=== PATIENT | female | born 1995 | race Hispanic/Latino ===

== ENCOUNTER 2021-03-11 22:00 | Emergency (ER) | payer SELFPAY ==
[2021-03-11] MEDS ORDERED: MORPHINE 4 MG/ML SYR ONE (22:21)
[2021-03-12] MEDS ORDERED: HYDROCODONE/APAP 5/325 MG TAB ONE (01:35)
--- NOTE | 2021-03-12 02:35 | ER ---
Nurse's Notes [facility] Name: Joselin Horvath Age: 26 yrs Sex: Female : 1995 Arrival Date: 03/11/2021 Time: 22:03 Bed 14 Private MD: Diagnosis: Fracture, Left Ankle, Dislocated, Displaced, Trimalleolar Presentation: 03/11 22:09 Chief complaint: Patient states: got left foot stuck between headboard and bed, twisted ld1 it and it is hurting really bad. Coronavirus screen: At this time, the client does not indicate any symptoms associated with coronavirus-19. Ebola Screen: No symptoms or risks identified at this time. Initial Sepsis Screen: Does the patient meet any 2 criteria? No. Patient's initial sepsis screen is negative. Does the patient have a suspected source of infection? No. Patient's initial sepsis screen is negative. Risk Assessment: Do you want to hurt yourself or someone else? Patient reports no desire to harm self or others. Onset of symptoms was March 11, 2021. 22:09 Method Of Arrival: Wheelchair ld1 22:09 Acuity: MELINA 3 ld1 Triage Assessment: 22:10 General: Appears in no apparent distress. uncomfortable, Behavior is cooperative, ld1 appropriate for age, anxious, crying. Pain: Complains of pain in left medial ankle and anterior aspect of left ankle Pain does not radiate. Pain currently is 10 out of 10 on a pain scale. Quality of pain is described as throbbing, Pain began 1 hour ago. Is continuous. Neuro: Level of Consciousness is awake, alert, obeys commands, Oriented to person, place, time, situation, Appropriate for age. Cardiovascular: Capillary refill < 3 seconds Patient's skin is warm and dry. Respiratory: Airway is patent Respiratory effort is even, unlabored, Respiratory pattern is regular, symmetrical. Musculoskeletal: Reports pain in anterior aspect of left ankle. Historical: - Allergies: 22:10 No Known Allergies; ld1 - Home Meds: 22:10 None [Active]; ld1 - PMHx: 22:10 None; ld1 - PSHx: 22:10 None; ld1 - Immunization history:: Adult Immunizations up to date, Client reports having NOT received the Covid vaccine. - Social history:: Smoking status: Patient denies any tobacco usage or history of. Patient/guardian denies using alcohol. Screenin:15 Abuse screen: Denies threats or abuse. Denies injuries from another. Nutritional dc2 screening: No deficits noted. Tuberculosis screening: No symptoms or risk factors identified. Never had TB. Fall Risk None identified. No fall in past 12 months (0 pts). No secondary diagnosis (0 pts). No IV (0 pts). Ambulatory Aid- None/Bed Rest/Nurse Assist (0 pts). Gait- Normal/Bed Rest/Wheelchair (0 pts) Mental Status- Oriented to own ability (0 pts). Total [place] Fall Scale indicates No Risk (0-24 pts). Assessment: 22:15 General: Appears uncomfortable, slender, well groomed, well developed, Behavior is dc2 cooperative, anxious, crying. Pain: Complains of pain in Left ankle. Neuro: No deficits noted. Level of Consciousness is awake, alert, obeys commands, Oriented to person, place, time, situation. Cardiovascular: Denies chest pain, shortness of breath, Heart tones present. Respiratory: No deficits noted. Airway is patent Breath sounds are clear bilaterally. GI: Bowel sounds present X 4 quads. : No signs and/or symptoms were reported regarding the genitourinary system. Derm: No deficits noted. No signs and/or symptoms reported regarding the dermatologic system. Musculoskeletal: Capillary refill < 3 seconds, Swelling present in left ankle with positive pulses brisk cap refill. 03/12 03:32 Reassessment: pt refused to go to [place] due to cost of ambulance transportation, Dr. sandra Barraza aware, will go AMA. Vital Signs: 03/11 22:09 BP 141 / 78; Pulse 79; Resp 18; Temp 97.9(TE); Pulse Ox 100% on R/A; Weight 65.77 kg; ld1 Height 5 ft. 4 in. (162.56 cm); Pain 10/10; 23:00 BP 112 / 66; Pulse 75; Resp 18; Pulse Ox 100% ; Pain 4/10; dc2 03/12 00:00 BP 111 / 84; Pulse 72; Resp 18; Pulse Ox 100% ; Pain 6/10; dc2 01:00 BP 101 / 58; Pulse 67; Resp 20; Pulse Ox 100% ; Pain 8/10; dc2 03:00 BP 99 / 64; Pulse 64; Resp 16; Temp 98.0; Pain 3/10; dc2 11 22:09 Body Mass Index 24.89 (65.77 kg, 162.56 cm) ld1 ED Course: 03/11 22:03 Patient arrived in ED. cf2 22:09 Kianna Mendez, RN is Primary Nurse. dc2 22:10 Triage completed. ld1 22:10 Arm band placed on left wrist. ld1 22:11 José Miguel Barraza MD is Attending Physician. mh7 22:15 Patient has correct armband on for positive identification. Bed in low position. Call dc2 light in reach. Side rails up X 1. Adult w/ patient. patient monitor on. Pulse ox on. NIBP on. Door closed. Lights dimmed. 22:39 X-ray(s) taken. dc2 22:57 Ankle Left 2 View In Process Unspecified. EDMS 22:57 Foot Left 2 View In Process Unspecified. EDMS 23:46 ED physician to see patient. construction services technician and Charge nurse Fidel at bedside for placement of dc2 splint to left ankle. 03/12 00:13 Ankle Left 3 View XRAY In Process Unspecified. EDMS 00:42 Orthoglass splint: Posterior short lleg splint applied on left leg. stirrup splint oe applied on left leg. 01:26 ED physician to see patient. dc2 02:17 initiated a transfer with Marti from [facility]. mw2 02:27 administrative approval given by Marti Devi/ patient has been accepted to [address] to the ER/ Dr. Phillips accepted the patient in transfer/ report to be called to [phone]. 02:30 IV Flushed Converted IV to saline lock on right antecubital area. dc2 02:30 No provider procedures requiring assistance completed. dc2 Administered Medications: 03/11 22:26 Drug: morphine 4 mg Route: IM; Site: left deltoid; dc2 23:03 Follow up: Response: Pain is decreased dc2 23:15 Follow up: Response: Pain is decreased dc2 03/12 01:38 Drug: [place] (HYDROcodone-acetaminophen) 5 mg-325 mg 1 tabs Route: PO; dc2 02:30 Follow up: Response: Pain is decreased dc2 Outcome: 02:35 ER care complete, transfer ordered by MD. ascencio 03:31 AMA AMA form signed dc2 03:31 Condition: stable 03:51 Patient left the ED. dc2 Signatures: Dispatcher [employer] Fidel Pulido, RN RN em Misael Katz MyKena mw2 Jennie Thornton 2 José Miguel Barraza MD MD 7 Kylah Mejia RN RN ld1 Kianna Mendez RN RN dc2
--- NOTE | 2021-03-12 02:36 | EDPHYS ---
Physician Documentation [facility] Name: Joselin Horvath Age: 26 yrs Sex: Female : 1995 Arrival Date: 03/11/2021 Time: 22:03 Bed 14 Private MD: LIZZ Physician José Miguel Barraza HPI: 03/11 22:20 This 26 yrs old Female presents to ER via Wheelchair with complaints of Ankle mh7 Injury, Ankle Swelling. 22:20 The patient presents with an injury, pain, that is acute, swelling. The complaints mh7 affect the left ankle. Onset: The symptoms/episode began/occurred just prior to arrival, today. Context: The problem was sustained at home, resulted from Foot got stuck between bed and headboard, The mechanism of injury involved inversion of the affected ankle. The mechanism of injury involved eversion of the affected ankle. The patient can partially bear weight on the affected extremity. must have assistance, from family. Associated signs and symptoms: Pertinent negatives: calf tenderness, fever, nausea, numbness, rash, tingling, vomiting, warmth, weakness. Modifying factors: The symptoms are alleviated by nothing, Did not take pain medication the symptoms are aggravated by weight bearing, movement. Severity of symptoms: At their worst the symptoms were moderate, earlier today, in the emergency department the symptoms are unchanged. Historical: - Allergies: 22:10 No Known Allergies; ld1 - Home Meds: 22:10 None [Active]; ld1 - PMHx: 22:10 None; ld1 - PSHx: 22:10 None; ld1 - Immunization history:: Adult Immunizations up to date, Client reports having NOT received the Covid vaccine. - Social history:: Smoking status: Patient denies any tobacco usage or history of. Patient/guardian denies using alcohol. ROS: 22:20 Constitutional: Negative for fever, chills, and weight loss, Eyes: Negative for injury, mh7 pain, redness, and discharge, ENT: Negative for injury, pain, and discharge, Neck: Negative for injury, pain, and swelling, Cardiovascular: Negative for chest pain, palpitations, and edema, Respiratory: Negative for shortness of breath, cough, wheezing, and pleuritic chest pain, Abdomen/GI: Negative for abdominal pain, nausea, vomiting, diarrhea, and constipation, Back: Negative for injury and pain, : Negative for injury, bleeding, discharge, and swelling, Skin: Negative for injury, rash, and discoloration, Neuro: Negative for headache, weakness, numbness, tingling, and seizure, Psych: Negative for depression, anxiety, suicide ideation, homicidal ideation, and hallucinations, Allergy/Immunology: Negative for hives, rash, and allergies, Endocrine: Negative for neck swelling, polydipsia, polyuria, polyphagia, and marked weight changes, Hematologic/Lymphatic: Negative for swollen nodes, abnormal bleeding, and unusual bruising. Exam: 22:20 Head/Face: Normocephalic, atraumatic. Skin: Warm, dry with normal turgor. Normal mh7 color with no rashes, no lesions, and no evidence of cellulitis. Neuro: Awake and alert, GCS 15, oriented to person, place, time, and situation. Cranial nerves II-XII grossly intact. Motor strength 5/5 in all extremities. Sensory grossly intact. Cerebellar exam normal. Normal gait. Psych: Awake, alert, with orientation to person, place and time. Behavior, mood, and affect are within normal limits. 22:20 Constitutional: The patient appears in no acute distress, alert, awake, uncomfortable. 22:20 Musculoskeletal/extremity: Extremities: noted in the Left ankle: pain, swelling, mh7 tenderness, ROM: limited active range of motion, in the Left ankle, limited passive range of motion, in the Left ankle, Circulation is intact in all extremities. Pulses: are normal with no appreciated deficits, Perfusion: the patient is normally perfused throughout, Perfusion: the extremity is normally perfused throughout, Calf tenderness, is absent, Edema, is not appreciated, Sensation intact. Compartment Syndrome exam of affected extremity: is normal. no numbness, no tingling, no sensation deficit, no palor, no weak pulses, Joints: the left ankle displays limited range of motion, pain at rest, painful range of motion, swelling, tenderness, Weight bearing: is unable to bear weight, Tendon exam: unable to examine due to patient being uncooperative. Vital Signs: 22:09 BP 141 / 78; Pulse 79; Resp 18; Temp 97.9(TE); Pulse Ox 100% on R/A; Weight 65.77 kg; ld1 Height 5 ft. 4 in. (162.56 cm); Pain 10/10; 23:00 BP 112 / 66; Pulse 75; Resp 18; Pulse Ox 100% ; Pain 4/10; dc2 03/12 00:00 BP 111 / 84; Pulse 72; Resp 18; Pulse Ox 100% ; Pain 6/10; dc2 01:00 BP 101 / 58; Pulse 67; Resp 20; Pulse Ox 100% ; Pain 8/10; dc2 03:00 BP 99 / 64; Pulse 64; Resp 16; Temp 98.0; Pain 3/10; dc2 03/11 22:09 Body Mass Index 24.89 (65.77 kg, 162.56 cm) ld1 Procedures: 00:05 Reduction: of the left ankle, using traction, Immobilized with Posterior splint. mh7 Patient tolerated well. Post reduction film - reveals improved alignment. 00:05 Splinting: Splint applied to left ankle using Orthoglass splint, applied by myself. mh7 tech. post reduction film - reveals normal alignment, Examined by me, post splint application: neurovascular intact, 2+ distal pulses palpable, brisk capillary refill noted, Patient tolerated well. MDM: 01:53 Differential diagnosis: fracture, sprain, Strain. Data reviewed: vital signs, nurses [facility] notes, radiologic studies, plain films. Data interpreted: Pulse oximetry: on room air is 100 %. Interpretation: normal. Counseling: I had a detailed discussion with the patient and/or guardian regarding: the historical points, exam findings, and any diagnostic results supporting the discharge/admit diagnosis, radiology results, the need for outpatient follow up, a orthopedic surgeon, to return to the emergency department if symptoms worsen or persist or if there are any questions or concerns that arise at home. Response to treatment: the patient's symptoms have markedly improved after treatment. Physician consultation: Ed Grey MD Called and paged multiple times without return call.. 02:32 ED course: Better, no acute distress, vitals are stable, neurovascular intact, no focal [facility] neurological deficits. No response from [employer] [facility] here. Discussed with Edyta Denton in the Medical Center and patient accepted for transfer.. 02:35 Patient medically screened. [facility] 03/12 02:30 Order name: CBC with Diff [facility] 03/12 02:30 Order name: Basic Metabolic Panel [facility] 03/12 02:30 Order name: LFT's; Complete Time: 03:23 [facility] 03/12 02:30 Order name: Protime (+inr); Complete Time: 03:23 [facility] 03/12 02:30 Order name: Ptt, Activated; Complete Time: 03:23 [facility] 03/12 02:30 Order name: Test, Serum [facility] 03/11 22:55 Order name: Ankle Left 2 View [facility] 03/11 22:55 Order name: Foot Left 2 View [facility] 03/11 23:55 Order name: Ankle Left 3 View XRAY [facility] 03/12 02:30 Order name: CBC with Automated Diff; Complete Time: 03:23 [facility] 03/12 02:30 Order name: Basic Metabolic Panel; Complete Time: 03:23 [facility] 03/12 01:49 Order name: Crutches; Complete Time: 03:37 [facility] Administered Medications: 03/11 22:26 Drug: morphine 4 mg Route: IM; Site: left deltoid; dc2 23:03 Follow up: Response: Pain is decreased dc2 23:15 Follow up: Response: Pain is decreased dc2 03/12 01:38 Drug: [place] (HYDROcodone-acetaminophen) 5 mg-325 mg 1 tabs Route: PO; dc2 02:30 Follow up: Response: Pain is decreased dc2 Disposition Summary: 03/12/21 02:35 Transfer Ordered Transfer Location: [place] [address] Reason: Higher level of care [facility] Condition: Stable [facility] Problem: new mh7 Symptoms: have improved mh7 Accepting Physician: Dr. Phillips(03/12/21 03:51) dc2 Diagnosis - Fracture, Left Ankle, Dislocated, Displaced, Trimalleolar [facility] Discharge Instructions: - Discharge Summary Sheet em Forms: - Medication Reconciliation Form 7 - SBAR form 7 Signatures: Dispatcher [employer] José Miguel Ro MD MD 7 Kylah Mejia RN RN ld1 Kianna Mendez RN RN dc2 Corrections: (The following items were deleted from the chart) 03/11 22:55 22:17 Ankle Left 3 View+RAD.RAD.BRZ ordered. [facility] 22:55 22:18 Foot Left 3 View+RAD.RAD.BRZ ordered. [facility] 03/12 02:33 01:53 ED course: Feels better, no acute distress, vitals are stable, neurovascular mh7 intact, no focal neurological deficits. Discussed test results and findings with patient. Discussed call placed to on-call orthopedics but not received a call back after over an hour. Patient reports she is ready for discharge from the ED at this time. She will follow up with orthopedics and information will be provided here. She knows to return if any worsening of symptoms.. [facility] 03:51 02:35 Dr. Phillips Victoriano dc2 03:51 03:51 Dr. Phillips [facility]
[2021-03-12 02:57] LABS: Absolute Lymphocytes (CBC) 1.7 K/uL (0.7-4.9); Basophils % 0.3 % (0-1.3); Hematocrit 33.4 % (36.0-45.0); Lymphocytes % 16.1 % (15.3-44.8); MPV 8.6 fL (7.6-11.3); RBC Red Blood Cell Count 3.76 M/uL (3.86-4.86)
[2021-03-12 03:20] LABS: ALT/SGPT 17 U/L (12-78); AST/SGOT 9 U/L (15-37); Albumin 3.2 g/dL (3.4-5.0); Alkaline Phosphatase 44 U/L (45-117); BUN Blood Urea Nitrogen 15 mg/dL (7-18); Bicarbonate 25 mmol/L (21-32); Bilirubin Direct 0.1 mg/dL (0-0.2); Bilirubin Total 0.4 mg/dL (0.2-1.0); Glucose Level 95 mg/dL (74-106); Potassium 3.8 mmol/L (3.5-5.1); Protein, Total 6.5 g/dL (6.4-8.2); Sodium Level 142 mmol/L (136-145)
[2021-03-12 03:57] VITALS: O2SAT 100
[2021-03-12 04:02] VITALS: BP 99/64; TEMP 98
[2021-03-12] MEDS ORDERED: HYDROMORPHONE HCL 2 MG/ML inj ONE (07:00)
--- NOTE | 2021-03-12 10:37 | RAD REPORT ---
EXAM DESCRIPTION: RAD - Ankle Left 3 View -03/12/2021 12:13 am CLINICAL HISTORY: Post reduction. COMPARISON: Ankle radiographs from today at 2245 hours. TECHNIQUE: Two views of the left ankle were obtained: AP and lateral radiographs. FINDINGS: Improved alignment at the tibiotalar joint, with mild residual posterior subluxation, and mild widening of the anterior joint space. Slightly improved alignment of the distal fibular and medi al malleolus fractures. There is also a displaced fracture of the posterior tibial plafond. IMPRESSION: 1. Improved alignment of the tibiotalar joint with mild residual posterior subluxation . 2. Slightly improved alignment of distal fibular and medial malleolus fractures. 3. Displaced acute fracture of the posterior tibial plafond, better visualized on this exam. Electronically signed by: Caryn Mario MD 03/12/2021 12:24 AM CDT Due to temporary technical issues with the PACS/Fluency reporting system, reports are being signed by the in house radiologist without review as a courtesy to ensure prompt reporting. The interpreting r adiologist is fully responsible for the content of the report.
--- NOTE | 2021-03-12 10:39 | RAD REPORT ---
EXAM DESCRIPTION: RAD - Ankle Left 2 View - 03/11/2021 10:57 pm CLINICAL HISTORY: Injury;Pain. COMPARISON: None. TECHNIQUE: Two views of the left ankle were obtained: AP and lateral radiographs. FINDINGS: Acute fracture dislocation of the ankle, with prominent lateral subluxation of the talus a t the tibiotalar joint, an acute displaced oblique fracture of the distal fibular shaft, and an acute displaced medial malleolus fracture. The talar dome appears intact. IMPRESSION: Acute fracture dislocation of the ankle, including prominent subluxation at the tibiotal ar joint. Electronically signed by: Caryn Mario MD 03/11/2021 11:27 PM CDT Due to temporary technical issues with the PACS/Fluency reporting system, reports are being signed by the in house radiologist without review as a courtesy to ensure prompt reporting. The interpreting r adiologist is fully responsible for the content of the report.
--- NOTE | 2021-03-12 10:40 | RAD REPORT ---
EXAM DESCRIPTION: RAD - Foot Left 2 View - 03/11/2021 10:57 pm CLINICAL HISTORY: 26 years Female, injury; Pain COMPARISON: None. FINDINGS/IMPRESSION: 1. No acute fracture or dislocation of the foot. 2. Incompletely evaluated trimalleolar ankle fracture with anterior medial dislocation of the distal tibia with respect to the talus. Electronically signed by: Amilcar Murcia MD 03/11/2021 11:14 PM CDT Due to temporary technical issues with the PACS/Fluency reporting system, reports are being signed by the in house radiologist without review as a courtesy to ensure prompt reporting. The interpreting r adiologist is fully responsible for the content of the report.
--- OUTSIDE RECORDS SUMMARY | 2021-03-22 08:34 | XMS REPORT | Continuity of Care Document ---
:1995 Author Organization [facility] t Address [address] [place] [address] Care Team Providers Name Role Phone Laci Elizabeth RN Primary Care Physician Unavailable Jose AYALA, Ed Santana Attending Clinician Bright Giles Attending Clinician Problems Condition Condition Condition Status Onset Resolution Last Treating Co mments Source Name Details Category Date Date Treatment Clinician Date Liveborn Liveborn Disease Active Unive rs , of infant, of 6-21 it y of [place] , [place] born in born in [facility] by vaginal by vaginal delivery delivery Normal Normal Disease Active Univers labor labor 6-20 ity of 00:00: [address] 38 weeks 38 weeks Disease Active Unive rs gestation gestation 6-20 ity of of of 00:00: [place] 00 [facility] Allergies, Adverse Reactions, Alerts This patient has no known allergies or adverse reactions. Social History Social Habit Start Date Stop Date Quantity Comments Source Exposure to Not sure [facility] SARS-CoV-2 [facility] (event) Branch Alcohol intake 2021-03-12 2021-03-12 Current University 00:00:00 00:00:00 non-drinker of [facility] alcohol [place] (finding) Tobacco use and 2017-10-27 2017-10-27 Never used Universit y of exposure 00:00:00 00:00:00 [facility] Sex Ass[birth year] At [birth year] Universit y of 00:00:00 00:00:00 [facility] Smoking Status Start Date Stop Date Source Never smoker [facility] [facility] Medications Ordered Filled Start Stop Current Ordering Indication Dosage Frequency Signature Comments Components Source Medication Medication Date Date Medication? Clinician (SIG) Name Name cecy 2020-05 Yes 4647 1{tbl} Take 1 Un alicia en-codeine 1-04 tablet by ity of (TYLENOL-CO 00:00: mouth [place] DEINE #3) 00 every 4 Medical 300-30 mg (four) Branch tablet hours as needed for Pain (scale 4-6) or Pain (scale 7-10). Indication s: acute pain acetaminoph 2020-05 Yes 4647 1{tbl} Take 1 Un alicia en-codeine 1-04 tablet by ity of (TYLENOL-CO 00:00: mouth [place] DEINE #3) 00 every 4 Medical 300-30 mg (four) Branch tablet hours as needed for Pain (scale 4-6) or Pain (scale 7-10). Indication s: acute pain Yes 1{tbl} Take 1 Unive rs vitamin 6-21 tablet by ity of w/FA tablet 00:00: mouth [place] 00 daily. Medical Branch docusate Yes 240mg Take 1 Univer s calcium 240 6-21 capsule by it y of mg capsule 00:00: mouth [place] 00 daily as Medical needed for Branch Constipati on. ferrous Yes 325mg Take 1 Univers sulfate 325 6-21 tablet by ity of mg (65 mg 00:00: mouth 2 [place] iron) 00 (two) Medical tablet times Branch daily. ibuprofen Yes 600mg Take 1 Unive rs 600 mg 6-21 tablet by ity of tablet 00:00: mouth [place] 00 every 6 Medical (six) Branch hours as needed for Pain (scale 1-3) or Pain (scale 4-6) (Pain). Take with food or milk. Yes 1{tbl} Take 1 Unive rs vitamin 6-21 tablet by ity of w/FA tablet 00:00: mouth [place] 00 daily. Medical Branch docusate Yes 240mg Take 1 Univer s calcium 240 6-21 capsule by it y of mg capsule 00:00: mouth once [place] 00 daily as Medical needed for Branch Constipati on. ferrous 20180 Yes 325mg Take 1 Univers sulfate 325 6-21 tablet by ity of mg (65 mg 00:00: mouth 2 [place] iron) 00 (two) Medical tablet times Branch daily. ibuprofen Yes 600mg Take 1 Unive rs 600 mg 6-21 tablet by ity of tablet 00:00: mouth [place] 00 every 6 Medical (six) Branch hours as needed for Pain (scale 1-3) or Pain (scale 4-6) (Pain). Take with food or milk. Yes 1{tbl} Take 1 Unive rs vitamin 6-21 tablet by ity of w/FA tablet 00:00: mouth [place] 00 daily. Medical Branch docusate Yes 240mg Take 1 Univer s calcium 240 6-21 capsule by it y of mg capsule 00:00: mouth once [place] 00 daily as Medical needed for Branch Constipati on. ferrous Yes 325mg Take 1 Univers sulfate 325 6-21 tablet by ity of mg (65 mg 00:00: mouth 2 [place] iron) 00 (two) Medical tablet times Branch daily. ibuprofen Yes 600mg Take 1 Unive rs 600 mg 6-21 tablet by ity of tablet 00:00: mouth [place] 00 every 6 Medical (six) Branch hours as needed for Pain (scale 1-3) or Pain (scale 4-6) (Pain). Take with food or milk. Vital Signs Vital Name Observation Time Observation Value Comments Source Systolic blood 2021-03-12 18:34:00 101 mm[Hg] Univer sity [facility] pressure [facility] Diastolic blood 2021-03-12 18:34:00 64 mm[Hg] [facility] Heart rate 2021-03-12 18:34:00 80 /min [facility] Body height 2021-03-12 18:34:00 162.6 cm [facility] Body weight 2021-03-12 18:34:00 76.204 kg [facility] BMI 2021-03-12 18:34:00 28.84 kg/m2 [facility] Oxygen saturation 2021-03-12 18:34:00 98 /min Uni [facility] in Arterial blood Medical Br anch by Pulse oximetry Procedures This patient has no known procedures. Encounters Start End Encounter Admission Attending Care Care Encounter Source Date/Time Date/Time Type Type Clinicians Facility Department ID 2021-03-18 2021-03-18 Telephone Jose [facility] [id number] Univers 00:00:00 00:00:00 Ed KNIGHT [id number] i ty of [id number] [id number] Mt dicwillie RAMÍREZ 038 [facility] 2021-03-12 2021-03-12 [facility] [id number] Univers 13:23:12 14:33:03 Visit Ed WILSON [id number] it y of [place] [id number] [place] as SHAHNAZ?BLEA [id number] Mt dical KAREENKERA 198 [facility] 2021-03-12 2021-03-12 Telephone Issac [facility] [id number] Univers 00:00:00 00:00:00 Gil Bright [facility] [id number] it y of [place] [id number] [place] SHAHNAZ?BLEA [id number] Mt dicwillie LOPEZ 198 [facility] Results This patient has no known results.
== END 2021-03-12 03:51 | disposition short-term general hospital (02) ==
LOC: ER 22:00
PROC: 0QSHXZZ Reposition Left Tibia, External Approach (ICD-10-PCS; principal; 2021-03-12)
DX: S82.852A Displaced trimalleolar fracture of left lower leg, initial encounter for closed fracture (principal); X58.XXXA Exposure to other specified factors, initial encounter; Y92.003 Bedroom of unspecified non-institutional (private) residence as the place of occurrence of the external cause
CPT/HCPCS: 36415; 80048; 80076; 84703; 85025; 85610; 85730; 96372; 99284; J1170